=== PATIENT | female | born 1945 | race Caucasian/White ===

== ENCOUNTER 2021-09-26 08:43 | Outpatient (CLI) | payer MEDICARE, SELFPAY ==
--- NOTE | 2021-09-26 09:07 | MM_ITS ---
WS: [id number] BILATERAL SCREENING 3D TOMOSYNTHESIS DIGITAL MAMMOGRAM WITH CAD HISTORY: SCREENING COMPARISON: 09/21/2020, 07/14/2019 and 05/20/2018 Bilateral CC and MLO views submitted. Computer aided detection analyzed. Breast composition: The breasts are heterogeneously dense, which may obscure small masses. No suspici ous masses, microcalcifications or architectural distortion. Benign coarse calcifications within each breast. No suspicious masses. MM/[id number] IMPRESSION: BI-RADS: 2-Benign FOLLOW UP: 1 Year Follow-up
== END 2021-09-26 08:44 | disposition home or self-care (01) ==
PROVIDERS: PCP Family Medicine; Visit Provider Family Medicine
DX: Z12.31 Encounter for screening mammogram for malignant neoplasm of breast (principal)
CPT/HCPCS: 77063; 77067

== ENCOUNTER → 2021-11-07 11:49 | Outpatient (BNVA) | payer MEDICARE, SELFPAY | PROVIDERS: PCP Family Medicine; Visit Provider Family Medicine | DX: Z00.00 Encounter for general adult medical examination without abnormal findings (principal); I10 Essential (primary) hypertension; E78.5 Hyperlipidemia, unspecified; E03.9 Hypothyroidism, unspecified | CPT/HCPCS: 80053; 80061; 84439; 84443; 85025 ==

== ENCOUNTER → 2022-06-06 08:18 | Outpatient (BNVA) | payer MEDICARE, SELFPAY | PROVIDERS: PCP Family Medicine; Visit Provider Clinical Nurse Specialist Adult Health | DX: M25.40 Effusion, unspecified joint (principal) | CPT/HCPCS: 84550 ==

== ENCOUNTER → 2022-06-12 11:01 | Outpatient (BNVA) | payer MEDICARE, SELFPAY | PROVIDERS: PCP Family Medicine; Visit Provider Family Medicine | DX: L02.91 Cutaneous abscess, unspecified (principal); M25.40 Effusion, unspecified joint | CPT/HCPCS: 87070; 87075; 87205 ==

== ENCOUNTER 2022-11-08 13:08 | Outpatient (CLI) | payer MEDICARE, SELFPAY ==
--- NOTE | 2022-11-08 13:15 | MM_ITS ---
WS: [id number] BILATERAL 3D TOMOSYNTHESIS DIGITAL SCREENING MAMMOGRAPHY WITH CAD CLINICAL INFORMATION: SCREENING HISTORY: Screening mammogram. No current complaints. COMPARISON: 2021 TECHNIQUE: Bilateral CC and MLO views. FINDINGS: The breasts are composed of heterogeneous fibroglandular density tissue, which can limit the detectio n of small underlying mass lesions. No suspicious mass, asymmetry, calcifications, or architectural d istortion. No evidence of malignancy. Punctate and lucent centered calcifications. Dystrophic calcifi cations bilaterally. MM/[id number] IMPRESSION: BI-RADS: 2-Benign FOLLOW UP: 1 Year Follow-up Recommend return to annual screening mammography.
== END 2022-11-08 13:09 | disposition home or self-care (01) ==
LOC: RAD 13:10
PROVIDERS: PCP Family Medicine; Visit Provider Family Medicine
DX: Z12.31 Encounter for screening mammogram for malignant neoplasm of breast (principal)
CPT/HCPCS: 77063; 77067

== ENCOUNTER → 2022-11-16 11:26 | Outpatient (BNVA) | payer MEDICARE, SELFPAY | PROVIDERS: PCP Family Medicine; Visit Provider Family Medicine | DX: F32.9 Major depressive disorder, single episode, unspecified (principal); E03.9 Hypothyroidism, unspecified; E78.5 Hyperlipidemia, unspecified; I10 Essential (primary) hypertension; Z51.81 Encounter for therapeutic drug level monitoring; Z13.220 Encounter for screening for lipoid disorders | CPT/HCPCS: 80053; 80061; 84439; 84443; 85025 ==

== ENCOUNTER → 2023-09-27 11:01 | Outpatient (BNVA) | payer MEDICARE, SELFPAY | PROVIDERS: PCP Family Medicine; Referring Provider Family Medicine; Visit Provider Dermatology | DX: L82.1 Other seborrheic keratosis (principal); L73.8 Other specified follicular disorders; D18.01 Hemangioma of skin and subcutaneous tissue; L57.8 Other skin changes due to chronic exposure to nonionizing radiation; Z85.828 Personal history of other malignant neoplasm of skin | CPT/HCPCS: 99203 ==

== ENCOUNTER 2024-01-22 08:38 | Outpatient (CLI) | payer MEDICARE, SELFPAY ==
--- NOTE | 2024-01-22 08:41 | MM_ITS ---
WS: [id number] BILATERAL SCREENING DIGITAL TOMOSYNTHESIS MAMMOGRAM WITH CAD HISTORY: SCREENING COMPARISON: 11/08/2022, 09/26/2021, 09/21/2020, 07/14/2019 Bilateral CC and MLO views with tomosynthesis and synthetic mammography submitted. Computer aided det ection analyzed. Breast composition: The breasts are heterogeneously dense, which may obscure small masses. No suspici ous masses, microcalcifications or architectural distortion. Numerous benign calcifications in each b reast. There is a triangular biopsy clip 6:00 LEFT breast. There is a partially obscured mass in the LEFT breast also near 6:00 which has been present on multiple prior years. MM/[id number] IMPRESSION: BI-RADS: 2-Benign FOLLOW UP: 1 Year Follow-up
== END 2024-01-22 08:39 | disposition home or self-care (01) ==
PROVIDERS: PCP Family Medicine; Visit Provider Family Medicine
DX: Z12.31 Encounter for screening mammogram for malignant neoplasm of breast (principal); E03.9 Hypothyroidism, unspecified; I10 Essential (primary) hypertension; Z13.220 Encounter for screening for lipoid disorders; Z51.81 Encounter for therapeutic drug level monitoring; E55.9 Vitamin D deficiency, unspecified
CPT/HCPCS: 77063; 77067; 80053; 80061; 82306; 84439; 84443; 85025

== ENCOUNTER → 2024-09-23 13:52 | Outpatient (BNVA) | payer MEDICARE, SELFPAY | PROVIDERS: PCP Family Medicine; Visit Provider Nurse Practitioner Family | DX: L82.1 Other seborrheic keratosis (principal); D18.01 Hemangioma of skin and subcutaneous tissue; L57.8 Other skin changes due to chronic exposure to nonionizing radiation; X32.XXXA Exposure to sunlight, initial encounter; L81.4 Other melanin hyperpigmentation; Z08 Encounter for follow-up examination after completed treatment for malignant neoplasm; Z85.828 Personal history of other malignant neoplasm of skin; L57.0 Actinic keratosis | CPT/HCPCS: 17000; 99213 ==

== ENCOUNTER 2024-09-30 08:36 | Emergency (ER) | payer MEDICARE, SELFPAY ==
[2024-09-30 08:36] VITALS: BP 160/99; PULSE 82; RESP 17; TEMP 37.2; O2SAT 96; BMI 23.6
--- NOTE | 2024-09-30 09:07 | W.ED.EPISTAX ---
HPI - Epistaxis General: Chief complaint: Epistaxis Stated complaint: Nose Bleed Time Seen by Provider: 09/30/24 08:58 Source: patient Mode of arrival: ambulatory Limitations: no limitations History of Present Illness: Patient is a 78-year-old female presents to ED today with a complaint of epistaxis. Patient states she was bent over washing her hair on the kitchen sink earlier this morning when she began noticing that her left nare was bleeding. She states she has had an issue with her left nare bleeding in the past and normally she can control the bleeding at home. She is not on anticoagulation. At time of arrival to the emergency department and at time of my initial assessment, she has a nasal clamp on her nose. This was removed and she is not actively bleeding. MD complaint: epistaxis Location: left nostril Onset (ago): hour(s) Duration: now resolved Context: history of previous Associated symptoms: Reports no associated symptoms; Deny fever(s), headache(s), sinus pain or vomiting Treatment prior to arrival: nasal clamp Related Data Home Medications ?Medication ?Instructions ?Recorded ?Confirmed levothyroxine 75 mcg tablet 75 mcg PO .@6AM 09/30/24 09/30/24 lisinopril 20 1 tab PO .@8AM 09/30/24 09/30/24 mg-hydrochlorothiazide 25 mg tablet lovastatin 20 mg tablet 20 mg PO .@NOON 09/30/24 09/30/24 Allergies Allergy/AdvReac Type Severity Reaction Status Date / Time citalopram Allergy Severe ADR-palpita Verified 10/18/22 13:48 tions Review of Systems Const: Denies: fever(s) ENMT: Reports: epistaxis; Denies: sinus pain Resp: Denies: dyspnea GI: Denies: vomiting Neuro: Denies: headache(s) PFSH ED PFSH: Medical History Major depression Generalized osteoarthritis Rheumatoid arthritis Hypothyroidism Hyperlipidemia Essential hypertension Surgical History Hx of cataract surgery Hx of rotator cuff surgery Hx of carpal tunnel repair Hx of knee surgery Hx of hysterectomy Family History Sister Cancer of colon cancer in 2015 Son Cancer Got colon cancer in 2017 Social History Smoking and tobacco/nicotine status: never used tobacco/nicotine Alcohol intake: never Physical Exam Const: COMMON NORMALS: no acute distress, average body habitus, patient oriented x3, no limitations, healthy appearing, alert and well nourished HENMT: COMMON NORMALS: Normal external nose present FACE & SINUS: normal facial exam NOSE: Normal external nose present and Epistaxis present (no active bleeding; dried blood L nare) on the left MOUTH: Normal oral and palatal mucosa present and lip normal THROAT: posterior oropharynx normal and tonsils normal Neuro: COMMON NORMALS: patient oriented x3 SENSORIUM/ORIENTATION: Yes alert Course Vital Signs: Vital signs: Vital Signs Temperature 99.0 F 09/30/24 08:36 Pulse Rate 82 09/30/24 08:36 Respiratory Rate 17 09/30/24 08:36 Blood Pressure 160/99 09/30/24 08:36 Pulse Oximetry 96 09/30/24 08:36 Oxygen Delivery Me thod Room Air 09/30/24 08:36 MDM - Epistaxis Medical Decision Making Patient here with a left anterior epistaxis. Bleeding had pretty well resolved at time of arrival to the emergency department. Scant amount of blood to her left nare. Did provide Afrin and nasal clamp. This was removed and patient was monitored for an additional 20 to 30 minutes without any further bleeding. Patient was given instructions on how to prevent re-bleeding at home and given instructions on what to do if her nare were to begin bleeding again. Differential Diagnosis Likely anterior epistaxis No radiology studies performed this visit Discharge Plan Discharge Patient Disposition: Home Clinical Impression: Acute anterior epistaxis Condition: Stable Prescriptions: No Action levothyroxine 75 mcg tablet 75 mcg PO .@6AM lisinopril-hydrochlorothiazide 20-25 mg tablet 1 tab PO .@8AM lovastatin 20 mg tablet 20 mg PO .@NOON Discharge Orders: Discharge ED (Routine); Ordered 09/30/24 Ordered By: Amanda Hernandez Referrals: Oli Cui MD [Primary Care Provider] - Patient Instructions: Epistaxis - Adult Activity Restrictions/Additional Instructions: As we discussed, over the next 24 to 48 hours, avoid touching your nose, bending over, coughing, sneezing (if you must do this these with your mouth open), straining, or blowing your nose. If bleeding returns at home, utilize the Afrin and nasal clamp with the directions that I provided you at time of discharge. You may also use ice. If you still cannot get bleeding to stop you may return to the emergency department for reevaluation. Print Language: Georgian Coding Level of Care Code ED [employer] for Alfred Jara
[2024-09-30] MEDS: oxymetazoline 0.05% Nasal Spray 15 mL 2 SPRAY NOSTRIL-L (09:21)
[2024-09-30 10:32] VITALS: BP 125/78; PULSE 59; O2SAT 59
== END 2024-09-30 10:37 | disposition home or self-care (01) ==
PROVIDERS: Emergency Provider Physician Assistant; PCP Family Medicine
DX: R04.0 Epistaxis (principal); E78.5 Hyperlipidemia, unspecified; I10 Essential (primary) hypertension
CPT/HCPCS: 99283; J9999

== ENCOUNTER 2025-01-22 11:17 | Outpatient (CLI) | payer MEDICARE, SELFPAY ==
--- NOTE | 2025-01-22 11:20 | MM_ITS ---
WS: [id number] BILATERAL SCREENING DIGITAL TOMOSYNTHESIS MAMMOGRAM WITH CAD HISTORY: SCREENING COMPARISON: 01/22/2024, 11/08/2022 Bilateral CC and MLO views with tomosynthesis and synthetic mammography submitted. Computer aided detection analyzed. Breast composition: The breasts are heterogeneously dense, which may obscure small masses. No suspicious masses, microcalcifications or architectural distortion. Benign bilateral calcifications. MM/MM scr BI tomosynthesis [id number] IMPRESSION: BI-RADS: 2 - Benign FOLLOW UP: 1 Year Follow-up
== END 2025-01-22 11:18 | disposition home or self-care (01) ==
LOC: RAD 11:17
PROVIDERS: PCP Family Medicine; Visit Provider Family Medicine
DX: Z12.31 Encounter for screening mammogram for malignant neoplasm of breast (principal); R92.333 Mammographic heterogeneous density, bilateral breasts; R92.1 Mammographic calcification found on diagnostic imaging of breast
CPT/HCPCS: 77063; 77067

== ENCOUNTER → 2025-01-27 08:22 | Outpatient (BNVA) | payer MEDICARE, SELFPAY | PROVIDERS: PCP Family Medicine; Visit Provider Family Medicine | DX: Z00.00 Encounter for general adult medical examination without abnormal findings (principal); Z51.81 Encounter for therapeutic drug level monitoring; Z13.6 Encounter for screening for cardiovascular disorders; E55.9 Vitamin D deficiency, unspecified; E03.9 Hypothyroidism, unspecified; R73.09 Other abnormal glucose | CPT/HCPCS: 80053; 80061; 82306; 83036; 84439; 84443; 85025 ==